=== PATIENT | female | born 1965 | race Caucasian/White ===

== ENCOUNTER 2023-03-10 10:07 | Emergency (ER) | payer MEDICARE, MEDICAID ==
[~2023-03-10] VITALS: Ht 154.9 cm; Wt 53.0 kg
[2023-03-10 10:15] VITALS: BP 113/78
[2023-03-10] MEDS ORDERED: VISCOUS LIDOCAINE 2% 15 ML UDC PO STA (10:38)
[2023-03-10] MEDS ORDERED: ONDANSETRON 4MG ODT PO STA (10:38)
[2023-03-10] MEDS ORDERED: MAGNESIUM/ALUMINUM HYDROXIDE/SIMETHICONE 30ML UDC PO STA (10:38)
[2023-03-10] MEDS ORDERED: FAMOTIDINE 20MG TABLET PO ONE (10:45)
[2023-03-10 10:58] LABS: BASOPHILS % 0.3 % (0.0-2.0); EOSINOPHILS % 1.1 % (0.0-5.0); HEMATOCRIT. 37.6 % (36.0-48.0); HEMOGLOBIN. 12.6 g/dL (12.0-16.0); LYMPHOCYTES % 40.6 % (20.0-50.0); MEAN CORPUSCULAR HEMOGLOBIN 30.1 pg (28.0-32.0); MEAN CORPUSCULAR VOLUME 89.5 fL (81.0-99.0); MEAN PLATELET VOLUME 6.7 fl (7.4-10.4); MONOCYTES % 9.8 % (2.0-8.0); NEUTROPHILS % 48.2 % (40.0-76.0); PLATELET 193 x1000/uL (130-400); RED CELL DISTRIBUTION WIDTH 14.2 % (11.6-14.6)
[2023-03-10] MEDS ORDERED: VISCOUS LIDOCAINE 2% 15 ML UDC PO NR (11:00)
[2023-03-10 11:05] LABS: CHLORIDE 109 mEq/L (98-107)
[2023-03-10] MEDS ORDERED: FAMO40TA70 MT (11:30)
== END 2023-03-10 11:47 | disposition home or self-care (01) ==
LOC: ER 11:36
DX: K21.9 Gastro-esophageal reflux disease without esophagitis (principal)
CPT/HCPCS: 36415; 71045; 80053; 81025; 83690; 84484; 85025; 99284; Q0162